=== PATIENT | male | born 1980 | race Hispanic/Latino ===

== ENCOUNTER → 2019-01-16 | Outpatient (CLI) | payer OTHER | END | disposition home or self-care (01) | LOC: RAH 11:22 → EEVIPCON 11:22 | PROVIDERS: ATTEND Internal Medicine | DX: S82.141A Displaced bicondylar fracture of right tibia, initial encounter for closed fracture (principal); S82.111A Displaced fracture of right tibial spine, initial encounter for closed fracture; M25.461 Effusion, right knee; V49.3XXA Car occupant (driver) (passenger) injured in unspecified nontraffic accident, initial encounter; Y93.89 Activity, other specified; Y92.89 Other specified places as the place of occurrence of the external cause; Y99.8 Other external cause status | CPT/HCPCS: 73700 ==